=== PATIENT | female | born 1995 | race Caucasian/White ===

== ENCOUNTER 2023-03-18 22:34 | Emergency (ER) | payer OTHER ==
[2023-03-18 22:48] VITALS: BP 109/72; PULSE 79; RESP 18; TEMP 98.2; BMI 29.0
[2023-03-18] MEDS ORDERED: SODIUM CHLORIDE 0.9% 500 ML INFUS.BAG IV ONE (23:17)
[2023-03-18] MEDS ORDERED: ACETAMINOPHEN 1000 MG/100 ML BAG IVPB ONE (23:17)
[2023-03-18 23:36] LABS: PH,URINE 6.5 (5.0-8.0); URINE APPEARANCE CLEAR; URINE BILIRUBIN NEGATIVE (NEGATIVE); URINE COLOR YELLOW; URINE GLUCOSE (UA) NEGATIVE (NEGATIVE); URINE KETONE NEGATIVE (NEGATIVE); URINE LEUK ESTERASE NEGATIVE (NEGATIVE); URINE NITRITE NEGATIVE (NEGATIVE); URINE PROTEIN NEGATIVE (NEGATIVE)
[2023-03-18 23:53] LABS: HCG,QUALITATIVE URINE Negative
[2023-03-18] MEDS ORDERED: ACETAMINOPHEN INJECTION 100 ML IVPB ONE (23:59)
[2023-03-19 00:32] LABS: BASO % 0.6 % (0-2.0); EOS % 1.2 % (0-4.5); HEMOGLOBIN 11.6 GM/dL (10.7-15.3); LYMPH % 34.3 % (8-40); MCH 30.5 pg (25.7-33.7); MCHC 34.2 g/dl (32.0-36.0); MEAN CELL VOLUME 89.4 fl (80-96); MEAN PLT VOLUME 9.9 fl (7.5-11.1); MONO % 9.5 % (3.8-10.2); NEUT % 54.4 % (42.8-82.8); PLATELET COUNT 232 10^3/uL (134-434); RDW 15.2 % (11.6-15.6); WHITE BLOOD COUNT 8.2 K/mm3 (4.0-10.0)
[2023-03-19 00:40] LABS: INR 1.01 (0.83-1.09); PROTHROMBIN TIME (PATIENT) 11.7 SEC (9.7-13.0)
[2023-03-19 00:42] LABS: POTASSIUM 4.1 mmol/L (3.5-5.1)
[2023-03-19 00:43] LABS: ACTIVATED PTT 28.8 SECONDS (25.2-36.5)
[2023-03-19 00:44] LABS: CALCIUM 8.7 mg/dL (8.5-10.1)
[2023-03-19 00:45] LABS: ALBUMIN 3.6 g/dl (3.4-5.0); BLOOD UREA NITROGEN 9.5 mg/dL (7-18)
[2023-03-19 00:48] LABS: CREATININE 0.5 mg/dL (0.55-1.3)
[2023-03-19 00:49] LABS: BILIRUBIN,TOTAL 0.8 mg/dL (0.2-1); TOT PROT 7.1 g/dl (6.4-8.2)
== END 2023-03-19 01:38 | disposition home or self-care (01) ==
LOC: JER 22:34
PROC: 3E033NZ Introduction of Analgesics, Hypnotics, Sedatives into Peripheral Vein, Percutaneous Approach (ICD-10-PCS; principal; 2023-03-18)
DX: R10.11 Right upper quadrant pain (principal); K80.80 Other cholelithiasis without obstruction; R11.0 Nausea; R19.7 Diarrhea, unspecified
CPT/HCPCS: 36415; 76705-TC; 80053; 81003; 83690; 84703; 85025; 85610; 85730; 86850; 86900; 86901; 87086; 93005; 93010; 99285-25

== ENCOUNTER 2023-07-04 09:48 | Emergency (ER) | payer OTHER ==
[2023-07-04 10:29] VITALS: BP 109/70; PULSE 73; RESP 16; TEMP 97.6; BMI 25.4
[2023-07-04] MEDS ORDERED: ONDANSETRON *ODT* 4 MG TABLET SL ONE (11:39)
[2023-07-04] MEDS ORDERED: ONDANSETRON *ODT* 4 MG TABLET ONE (11:41)
== END 2023-07-04 13:34 | disposition home or self-care (01) ==
LOC: JERFT 09:48
DX: M79.10 Myalgia, unspecified site (principal); B34.9 Viral infection, unspecified; R11.2 Nausea with vomiting, unspecified; R68.83 Chills (without fever); Z20.822 Contact with and (suspected) exposure to COVID-19
CPT/HCPCS: 0241U-QW; 99283-25; Q0162

== ENCOUNTER 2023-08-21 21:37 | Emergency (ER) | payer OTHER ==
[2023-08-21 21:45] VITALS: RESP 18; BMI 26.6
[2023-08-21] MEDS ORDERED: ONDANSETRON 4 MG/2 ML VIAL ONE (23:56)
[2023-08-21] MEDS ORDERED: ACETAMINOPHEN 325 MG TABLET (FP) ONE (23:56)
[2023-08-22] MEDS: ONDANSETRON 4 MG/2 ML VIAL IVPUSH ONE (00:12)
[2023-08-22] MEDS: ACETAMINOPHEN 500 MG TABLET (FP) PO ONE (00:12)
[2023-08-22 00:33] LABS: BASO % 0.5 % (0-2.0); EOS % 1.5 % (0-4.5); HEMATOCRIT 34.7 % (32.4-45.2); HEMOGLOBIN 11.9 GM/dL (10.7-15.3); LYMPH % 35.8 % (8-40); MCH 30.3 pg (25.7-33.7); MCHC 34.3 g/dl (32.0-36.0); MEAN CELL VOLUME 88.3 fl (80-96); MEAN PLT VOLUME 9.8 fl (7.5-11.1); MONO % 7.5 % (3.8-10.2); NEUT % 54.7 % (42.8-82.8); PLATELET COUNT 239 10^3/uL (134-434); RBC 3.93 M/mm3 (3.60-5.2); RDW 16.2 % (11.6-15.6); WHITE BLOOD COUNT 11.4 K/mm3 (4.0-10.0)
[2023-08-22 00:37] LABS: EPI CELLS 8 /uL (0-25.1); HYALINE CASTS 0 /uL (0-3.1); URINE APPEARANCE CLEAR; URINE BACTERIA 29 /uL (0-1359); URINE BILIRUBIN NEGATIVE (NEGATIVE); URINE COLOR YELLOW; URINE GLUCOSE (UA) NEGATIVE (NEGATIVE); URINE KETONE NEGATIVE (NEGATIVE); URINE LEUK ESTERASE TRACE (NEGATIVE); URINE NITRITE NEGATIVE (NEGATIVE); URINE PROTEIN TRACE (NEGATIVE); URINE WBC 40 /uL (0-25.8)
[2023-08-22 00:50] VITALS: BP 105/64; PULSE 60; TEMP 98.1
[2023-08-22 01:06] LABS: CHLORIDE 108 mmol/L (98-107); POTASSIUM 3.8 mmol/L (3.5-5.1); SODIUM 141 mmol/L (136-145)
[2023-08-22 01:08] LABS: ALBUMIN 3.9 g/dl (3.4-5.0); ANION GAP 7 mmol/L (4-13); BLOOD UREA NITROGEN 10.3 mg/dL (7-18); CALCIUM 8.9 mg/dL (8.5-10.1); CO2 25 mmol/L (21-32); GLUCOSE,RANDOM 95 mg/dL (74-106)
[2023-08-22 01:11] LABS: CREATININE 0.5 mg/dL (0.55-1.3); SGOT/AST 8 U/L (15-37); SGPT/ALT 21 U/L (13-61)
[2023-08-22 01:13] LABS: BILIRUBIN,TOTAL 0.6 mg/dL (0.2-1); TOT PROT 7.5 g/dl (6.4-8.2)
[2023-08-22 01:14] LABS: ALK PHOS 87 U/L (45-117)
[2023-08-22] MEDS: CEPHALEXIN MONOHYDRATE 500 MG CAPSULE (UD) PO ONE (02:19)
[2023-08-22 04:34] LABS: URINE CRYSTALS MODERATE /hpf; URINE RBC 1242.6 /uL (0-23.9)
== END 2023-08-22 02:38 | disposition home or self-care (01) ==
LOC: JER 21:37
PROC: 3E033GC Introduction of Other Therapeutic Substance into Peripheral Vein, Percutaneous Approach (ICD-10-PCS; principal; 2023-08-21)
DX: O20.9 Hemorrhage in early pregnancy, unspecified (principal); O26.891 Other specified pregnancy related conditions, first trimester; R10.30 Lower abdominal pain, unspecified; R30.0 Dysuria; R11.0 Nausea; Z3A.09 9 weeks gestation of pregnancy
CPT/HCPCS: 36415; 76830-TC; 80053; 81003; 84702; 85025; 86850; 86900; 86901; 87086; 87491; 87591; 87661; 96374; 99284-25

== ENCOUNTER 2023-10-21 21:20 | Emergency (ER) | payer OTHER ==
[2023-10-21 21:28] VITALS: BP 102/64; PULSE 68; RESP 18; TEMP 98.2; BMI 28.3
[2023-10-21] MEDS ORDERED: ACETAMINOPHEN 325 MG TABLET (FP) ONE (22:23)
[2023-10-21] MEDS: ACETAMINOPHEN 500 MG TABLET (FP) PO ONE (22:27)
== END 2023-10-21 23:28 | disposition home or self-care (01) ==
LOC: JER 21:20
DX: S00.11XA Contusion of right eyelid and periocular area, initial encounter (principal); H53.8 Other visual disturbances; H57.11 Ocular pain, right eye; W01.198A Fall on same level from slipping, tripping and stumbling with subsequent striking against other object, initial encounter
CPT/HCPCS: 70450-TC; 70480-TC; 84703; 99284-25